=== PATIENT | female | born 1970 | race Asian ===

== ENCOUNTER 2018-10-08 23:49 | Outpatient (CLI) | payer OTHER | END 2018-10-08 23:54 | disposition short-term general hospital (02) | LOC: AMB 23:49 | DX: M25.511 Pain in right shoulder (principal); M54.89 Other dorsalgia; M54.2 Cervicalgia; V49.9XXA Car occupant (driver) (passenger) injured in unspecified traffic accident, initial encounter; Y92.413 State road as the place of occurrence of the external cause | CPT/HCPCS: A0425; A0427 ==

== ENCOUNTER 2018-10-09 00:03 | Emergency (ER) | payer OTHER ==
[~2018-10-09] VITALS: Ht 165.1 cm; Wt 117.9 kg
[2018-10-09 03:10] VITALS: BP 141/100; TEMP 98.2
== END 2018-10-09 03:10 | disposition home or self-care (01) ==
LOC: ED 00:03
DX: S13.4XXA Sprain of ligaments of cervical spine, initial encounter (principal); S39.012A Strain of muscle, fascia and tendon of lower back, initial encounter; S40.011A Contusion of right shoulder, initial encounter; V49.9XXA Car occupant (driver) (passenger) injured in unspecified traffic accident, initial encounter
CPT/HCPCS: 99283

== ENCOUNTER 2021-01-26 16:50 | Emergency (ER) | payer OTHER ==
[~2021-01-26] VITALS: Ht 165.1 cm; Wt 1008.8 kg
[2021-01-26 16:55] VITALS: TEMP 98.5
[2021-01-26 22:45] LABS: PLATELET COUNT 312 K/uL (152-353)
[2021-01-26 22:58] LABS: POTASSIUM 4.5 mmol/L (3.6-5.2)
[2021-01-27 04:30] VITALS: BP 136/95
== END 2021-01-27 04:47 | disposition home or self-care (01) ==
LOC: ED 16:50
PROVIDERS: Emergency Medicine Emergency Medical Services
DX: N39.0 Urinary tract infection, site not specified (principal); N20.0 Calculus of kidney
CPT/HCPCS: 36415; 80053; 81000; 85027; 87040; 87077; 87086; 87088; 87186; 96360; 96361; 96365; 96366; 96375; 99284; J1956; J2405